=== PATIENT | male | born 1995 | race Caucasian/White ===

== ENCOUNTER 2020-06-27 17:21 | Emergency (ER) | payer OTHER ==
[2020-06-27 17:38] VITALS: TEMP 98.1; BMI 24.3
[2020-06-27 20:40] LABS: EPI CELLS 14 /uL (0-25.1); HYALINE CASTS 2 /uL (0-3.1); URINE APPEARANCE CLEAR; URINE BACTERIA 171 /uL (0-1359); URINE BILIRUBIN NEGATIVE (NEGATIVE); URINE COLOR YELLOW; URINE GLUCOSE (UA) NEGATIVE (NEGATIVE); URINE KETONE TRACE (NEGATIVE); URINE LEUK ESTERASE NEGATIVE (NEGATIVE); URINE NITRITE NEGATIVE (NEGATIVE); URINE PROTEIN TRACE (NEGATIVE); URINE RBC 116 /uL (0-23.9); URINE WBC 31 /uL (0-25.8)
[2020-06-27] MEDS ORDERED: AZITHROMYCIN 500 MG TABLET PO ONE (21:36)
[2020-06-27] MEDS ORDERED: AZITHROMYCIN 500 MG TABLET ONE (21:53)
[2020-06-27] MEDS ORDERED: cefTRIAXone SODIUM 1 GM VIAL ONE (21:54)
[2020-06-27 22:12] VITALS: BP 141/72; PULSE 68
== END 2020-06-27 22:15 | disposition home or self-care (01) ==
LOC: JER 17:21
PROC: 3E023GC Introduction of Other Therapeutic Substance into Muscle, Percutaneous Approach (ICD-10-PCS; principal; 2020-06-27)
DX: N50.811 Right testicular pain (principal); N50.812 Left testicular pain; K59.00 Constipation, unspecified
CPT/HCPCS: 36415; 76870-TC; 81003; 87086; 87491; 87591; 99284-25

== ENCOUNTER 2021-04-04 22:52 | Emergency (ER) | payer OTHER ==
[2021-04-04 23:02] VITALS: BP 140/86; PULSE 91; TEMP 98.9; BMI 26.4
[2021-04-04] MEDS ORDERED: ASPIRIN 81 MG CHEWABLE TABLETS PO ONE (23:59)
[2021-04-05] MEDS ORDERED: ASPIRIN 81 MG CHEWABLE TABLETS ONE (00:02)
[2021-04-05] MEDS ORDERED: POLYETHYLENE GLYCOL (HEALTHYLAX) 3350 17 GM PACKET PO ONE (00:04)
[2021-04-05 00:10] LABS: BASO % 0.4 % (0-2.0); EOS % 0.9 % (0-4.5); HEMOGLOBIN 15.2 GM/dL (11.7-16.9); LYMPH % 28.9 % (8-40); MCH 31.6 pg (25.7-33.7); MCHC 34.5 g/dl (32.0-35.9); MEAN CELL VOLUME 91.5 fl (80-96); MEAN PLT VOLUME 8.8 fl (7.5-11.1); NEUT % 60.8 % (42.8-82.8); PLATELET COUNT 201 10^3/uL (134-434); RBC 4.82 M/mm3 (4.00-5.60); RDW 12.9 % (11.9-15.9); WHITE BLOOD COUNT 9.6 K/mm3 (4.0-10.0)
[2021-04-05 00:30] LABS: CHLORIDE 104 mmol/L (98-107); SODIUM 128 mmol/L (136-145)
[2021-04-05 00:32] LABS: ALBUMIN 3.6 g/dl (3.4-5.0); BLOOD UREA NITROGEN 12.5 mg/dL (7-18); CALCIUM 8.6 mg/dL (8.5-10.1); CO2 26 mmol/L (21-32); GLUCOSE,RANDOM 85 mg/dL (74-106); MAGNESIUM 2.5 mg/dL (1.8-2.4)
[2021-04-05 00:35] LABS: CREATININE 1.1 mg/dL (0.55-1.3)
[2021-04-05 00:37] LABS: TOT PROT 8.4 g/dl (6.4-8.2)
[2021-04-05 00:38] LABS: ALK PHOS 88 U/L (45-117)
[2021-04-05] MEDS ORDERED: SODIUM CHLORIDE 0.9% 500 ML INFUS.BAG IV ONE (00:45)
[2021-04-05 02:17] LABS: ANION GAP -2 MMOL/L (8-16); SGOT/AST 104 U/L (15-37)
[2021-04-05 02:41] LABS: BLOOD UREA NITROGEN 11.3 mg/dL (7-18); CALCIUM 8.9 mg/dL (8.5-10.1)
== END 2021-04-05 04:21 | disposition home or self-care (01) ==
LOC: JER 22:52
DX: R07.9 Chest pain, unspecified (principal)
CPT/HCPCS: 36415; 71046-TC-FY; 80048; 80053; 82550; 82553; 83735; 84484; 85025; 93005; 93010; 99285-25

== ENCOUNTER 2024-02-13 17:21 | Emergency (ER) | payer OTHER ==
[2024-02-13 17:49] VITALS: BP 124/73; PULSE 63; RESP 12; TEMP 98.3; BMI 29.0
[2024-02-13] MEDS ORDERED: FAMOTIDINE 20 MG/50 ML IVPB 20 MG/50 ML MG IVPB ONE (18:47)
[2024-02-13] MEDS ORDERED: MAG HYDROX/AL HYDROX/SIMETH 30 ML UNIT-DOSE CUP ONE (18:47)
[2024-02-13] MEDS ORDERED: ACETAMINOPHEN INJECTION 100 ML IVPB ONE (18:47)
[2024-02-13] MEDS: MAG HYDROX/AL HYDROX/SIMETH 30 ML UNIT-DOSE CUP PO ONE (18:56)
[2024-02-13] MEDS: SODIUM CHLORIDE 0.9% 500 ML INFUS.BAG IV ONE (18:56)
[2024-02-13] MEDS: ACETAMINOPHEN 1000 MG/100 ML BAG IVPB ONE (18:56)
[2024-02-13] MEDS: FAMOTIDINE 20 MG/50 ML IVPB 20 MG/50 ML MG IVPB ONE (18:56)
[2024-02-13 19:12] LABS: BASO % 0.8 % (0-2.0); HEMATOCRIT 45.4 % (35.4-49); HEMOGLOBIN 15.1 GM/dL (11.7-16.9); LYMPH % 41.2 % (8-40); MCH 30.6 pg (25.7-33.7); MCHC 33.2 g/dl (32.0-35.9); MEAN CELL VOLUME 92.1 fl (80-96); MEAN PLT VOLUME 8.5 fl (7.5-11.1); MONO % 9.8 % (3.8-10.2); NEUT % 45.2 % (42.8-82.8); PLATELET COUNT 241 10^3/uL (134-434); RBC 4.93 M/mm3 (4.00-5.60); RDW 12.5 % (11.9-15.9); WHITE BLOOD COUNT 7.1 K/mm3 (4.0-10.0)
[2024-02-13 19:29] LABS: POTASSIUM 4.4 mmol/L (3.5-5.1)
[2024-02-13 19:31] LABS: ALBUMIN 4.2 g/dl (3.4-5.0); BLOOD UREA NITROGEN 11.6 mg/dL (7-18); CALCIUM 9.2 mg/dL (8.5-10.1)
[2024-02-13 19:35] LABS: CREATININE 0.8 mg/dL (0.55-1.3)
[2024-02-13 19:36] LABS: BILIRUBIN,TOTAL 0.4 mg/dL (0.2-1)
[2024-02-13 19:37] LABS: TOT PROT 8.1 g/dl (6.4-8.2)
[2024-02-13] MEDS ORDERED: MECLIZINE HCL 25 MG TABLET (FP) ONE (21:20)
[2024-02-13] MEDS ORDERED: METOCLOPRAMIDE HCL INJECTION 10 MG/2 ML VIAL ONE (21:20)
[2024-02-13] MEDS: MECLIZINE HCL 25 MG TABLET (FP) PO ONE (21:34)
[2024-02-13] MEDS: METOCLOPRAMIDE HCL INJECTION 10 MG/2 ML VIAL IVPB ONE (21:34)
== END 2024-02-13 22:15 | disposition home or self-care (01) ==
LOC: JER 17:21
PROC: 3E033GC Introduction of Other Therapeutic Substance into Peripheral Vein, Percutaneous Approach (ICD-10-PCS; principal; 2024-02-13)
PROC: 3E033NZ Introduction of Analgesics, Hypnotics, Sedatives into Peripheral Vein, Percutaneous Approach (ICD-10-PCS; 2024-02-13)
PROC: 3E033GC Introduction of Other Therapeutic Substance into Peripheral Vein, Percutaneous Approach (ICD-10-PCS; 2024-02-13)
DX: H81.10 Benign paroxysmal vertigo, unspecified ear (principal); R07.9 Chest pain, unspecified; M54.9 Dorsalgia, unspecified; R10.13 Epigastric pain; Z20.822 Contact with and (suspected) exposure to COVID-19
CPT/HCPCS: 0241U-QW; 36415; 71046-TC-FY; 80053; 84484; 85025; 93005; 93010; 99285-25; J0131